=== PATIENT | male | born 1965 | race African-American/Black ===

== ENCOUNTER 2020-08-14 09:12 | Emergency (ER) | payer OTHER ==
[~2020-08-14] VITALS: Ht 152.4 cm; Wt 63.5 kg
[2020-08-14 09:30] VITALS: TEMP 100.2
[2020-08-14 09:56] LABS: PLATELET COUNT 77 K/uL (142-355)
[2020-08-14 10:27] LABS: POTASSIUM 2.4 mmol/L (3.6-5.2)
[2020-08-14 12:59] VITALS: BP 111/67
== END 2020-08-14 13:30 | disposition still patient (30) ==
LOC: ED 09:12
PROVIDERS: Hospitalist
DX: J18.9 Pneumonia, unspecified organism (principal); R50.9 Fever, unspecified; K74.69 Other cirrhosis of liver; Z20.828 Contact with and (suspected) exposure to other viral communicable diseases
CPT/HCPCS: 36415; 80053; 80320; 81000; 82150; 82272; 83605; 83690; 85027; 85730; 87040; 87077; 87186; 87205; 87635; 96360; 96361; 96365; 96366; 96375; 99284; J1956; J2405; U0003

== ENCOUNTER 2020-11-30 13:58 | Emergency (ER) | payer OTHER ==
[~2020-11-30] VITALS: Ht 162.6 cm; Wt 59.0 kg
[2020-11-30 14:02] VITALS: TEMP 98.1
[2020-11-30 14:42] LABS: PLATELET COUNT 73 K/uL (142-355)
[2020-11-30] MEDS ORDERED: KLOR-CON M2020 MEQ PO (14:42)
[2020-11-30] MEDS ORDERED: THIA100T8 PO (14:42)
[2020-11-30] MEDS ORDERED: VIMPAT50 MG PO (14:43)
[2020-11-30] MEDS ORDERED: LEVO0.1T6 PO (14:43)
[2020-11-30] MEDS ORDERED: HYDR10TA10 PO (14:43)
[2020-11-30] MEDS ORDERED: FURO20TA67 PO (14:43)
[2020-11-30] MEDS ORDERED: VITAMIN B-121000 MC1 SL (14:44)
[2020-11-30] MEDS ORDERED: MAGN400T4 PO (14:44)
[2020-11-30] MEDS ORDERED: GABA300C2 PO (14:45)
[2020-11-30] MEDS ORDERED: SPIR50TA8 PO (14:45)
[2020-11-30] MEDS ORDERED: ASPIRIN 8181 MG PO (14:45)
[2020-11-30] MEDS ORDERED: CLINDAMYCIN HY300 MG PO (14:46)
[2020-11-30] MEDS ORDERED: OMEPRAZOLE40 MG PO (14:46)
[2020-11-30 14:59] LABS: POTASSIUM 4.5 mmol/L (3.6-5.2)
[2020-11-30 15:05] LABS: SODIUM 119 mmol/L (136-145)
[2020-11-30 15:26] LABS: PARTIAL THROMBOPLASTIN TIME 50.1 SECONDS (24.5-33.6)
[2020-11-30 16:00] VITALS: BP 137/67
== END 2020-11-30 16:25 | disposition short-term general hospital (02) ==
LOC: ED 13:58
PROVIDERS: Emergency Medicine
DX: D64.89 Other specified anemias (principal); K74.69 Other cirrhosis of liver; E87.1 Hypo-osmolality and hyponatremia; K72.10 Chronic hepatic failure without coma; Z11.52 Encounter for screening for COVID-19
CPT/HCPCS: 36415; 80053; 82150; 83690; 84484; 85027; 85610; 85730; 86850; 86900; 86901; 86922; 87635; 93005; 96360; 96375; 99284; J2405; U0003

== ENCOUNTER 2021-01-10 10:56 | Emergency (ER) | payer OTHER ==
[~2021-01-10] VITALS: Ht 162.6 cm; Wt 54.4 kg
[~2021-01-10 10:56] MED LIST: ASPIRIN 8181 MG PO; CLINDAMYCIN HY300 MG PO; FURO20TA67 PO; GABA300C2 PO; HYDR10TA10 PO; KLOR-CON M2020 MEQ PO; LEVO0.1T6 PO; MAGN400T4 PO; OMEPRAZOLE40 MG PO; SPIR50TA8 PO; THIA100T8 PO; VIMPAT50 MG PO; VITAMIN B-121000 MC1 SL
[2021-01-10 12:20] LABS: PLATELET COUNT 45 K/uL (142-355); POTASSIUM 3.8 mmol/L (3.6-5.2)
[2021-01-10 14:30] VITALS: TEMP 97.9
[2021-01-10 17:53] VITALS: BP 110/68
== END 2021-01-10 17:54 | disposition home or self-care (01) ==
LOC: ED 10:56
PROVIDERS: Family Medicine
DX: E83.42 Hypomagnesemia (principal); E87.6 Hypokalemia; K74.69 Other cirrhosis of liver
CPT/HCPCS: 80053; 80320; 81000; 82150; 83690; 83735; 85027; 96361; 96365; 96366; 99284; J3475

== ENCOUNTER 2021-01-11 20:39 | Emergency (ER) | payer OTHER ==
[~2021-01-11] VITALS: Ht 162.6 cm; Wt 59.0 kg
[2021-01-11 22:40] VITALS: BP 105/70; TEMP 99.7
== END 2021-01-11 22:40 | disposition home or self-care (01) ==
LOC: ED 20:39
DX: R10.9 Unspecified abdominal pain (principal)
CPT/HCPCS: 99282

== ENCOUNTER 2021-01-18 00:04 | Emergency (ER) | payer OTHER ==
[~2021-01-18] VITALS: Ht 162.6 cm; Wt 59.0 kg
[2021-01-18 00:02] VITALS: TEMP 97.9
[2021-01-18 01:08] LABS: POTASSIUM 4.5 mmol/L (3.6-5.2)
[2021-01-18 01:17] LABS: PLATELET COUNT 88 K/uL (142-355)
[2021-01-18 06:45] VITALS: BP 118/68
== END 2021-01-18 07:00 | disposition short-term general hospital (02) ==
LOC: ED 00:04
PROVIDERS: Family Medicine
DX: R56.9 Unspecified convulsions (principal); K74.69 Other cirrhosis of liver; G93.49 Other encephalopathy; Z11.52 Encounter for screening for COVID-19
CPT/HCPCS: 36415; 80053; 80320; 82150; 83690; 85007; 85027; 87635; 96360; 96375; 99284; J2060; U0003